=== PATIENT | female | born 1955 | race Caucasian/White ===

== ENCOUNTER 2016-12-20 21:51 | Emergency (ER) | payer OTHER ==
[~2016-12-20] VITALS: Ht 167.6 cm; Wt 80.2 kg
[~2016-12-20 21:51] MED LIST: ASPIR-LOW81 MG PO; CIPRO500 MG PO; FLAGYL500 MG PO; HYDRALAZINE HCL10 MG PO; LEVOTHYROXINE100 MCG PO; LISINOPRIL40 MG PO; MICROZIDE12.5 M1 PO; NIFEDIPINE ER30 MG PO; NIFEDIPINE ER60 MG PO
[2016-12-20 22:34] LABS: HEMATOCRIT 40.2 % (36.0-46.0); MCH 29.8 PG (29.0-34.0); MCHC 34.1 G/DL (30.0-36.0); MCV 87.4 FL (83-99); MEAN PLAT.VOLUME 10.4 uM^3 (9.5-12.4); PLATELET COUNT 230 K/uL (156-360); RBC DIS.WIDTH-SD 40.5 % (39-53)
[2016-12-20 22:51] LABS: D-DIMER ELISA 0.19 mg/L FEU (< 0.57)
[2016-12-20 22:52] LABS: CHLORIDE 105 mEq/L (99-109); POTASSIUM 4.1 mEq/L (3.7-5.4); SODIUM 141 mEq/L (136-147)
[2016-12-20 22:54] LABS: GLUCOSE 185 mg/dL (70-99)
[2016-12-20 22:55] LABS: ANION GAP 13 MEQ/L (2-14); TROP-I INTERPRETATION NEGATIVE; TROPONIN-I < 0.01 ng/mL (0.0-0.30)
[2016-12-20 22:58] LABS: GFR ESTIMATE (CALCULATED) > 59 mL/min/
[2016-12-20 22:59] LABS: UREA NITROGEN (BUN) 21 mg/dL (9-23)
[2016-12-20] MEDS ORDERED: CLONIDINE HCL0.3 MG PO (23:13)
[2016-12-20] MEDS ORDERED: SPIRONOLACTONE25 MG PO (23:14)
[2016-12-20] MEDS ORDERED: SUCRALFATE1 GM PO (23:15)
[2016-12-20] MEDS ORDERED: LEVO-T112 MCG PO (23:16)
[2016-12-20] MEDS ORDERED: CARVEDILOL25 MG PO (23:18)
[2016-12-21 00:17] LABS: TROP-I INTERPRETATION NEGATIVE; TROPONIN-I < 0.01 ng/mL (0.0-0.30)
[2016-12-21 00:48] VITALS: BP 157/86
== END 2016-12-21 00:56 | disposition home or self-care (01) ==
LOC: EME 21:51
PROVIDERS: Emergency Medicine
DX: R07.9 Chest pain, unspecified (principal); I10 Essential (primary) hypertension; R73.9 Hyperglycemia, unspecified; R10.12 Left upper quadrant pain; R06.00 Dyspnea, unspecified; M54.9 Dorsalgia, unspecified; E03.9 Hypothyroidism, unspecified
CPT/HCPCS: 71020; 80048; 83880; 84484; 85027; 85379; 93005; 99281; 99285

== ENCOUNTER 2018-04-25 21:36 | Emergency (ER) | payer OTHER ==
[~2018-04-25] VITALS: Ht 165.1 cm; Wt 80.2 kg
[~2018-04-25 21:36] MED LIST changes: +CARVEDILOL25 MG PO; +CLONIDINE HCL0.3 MG PO; +LEVO-T112 MCG PO; +SPIRONOLACTONE25 MG PO; +SUCRALFATE1 GM PO
[2018-04-25 22:10] LABS: HEMATOCRIT 38.7 % (36.0-46.0); HEMOGLOBIN 13.2 G/DL (11.9-15.5); MCH 29.9 PG (29.0-34.0); MCHC 34.1 G/DL (30.0-36.0); MCV 87.8 FL (83-99); PLATELET COUNT 241 K/uL (156-360); RBC DIS.WIDTH-CV 13.2 % (11.8-14.6); RBC DIS.WIDTH-SD 42.6 % (39-53); RED BLOOD COUNT 4.41 M/uL (3.80-5.20); WHITE BLOOD COUNT 7.1 K/uL (4.1-10.2)
[2018-04-25 22:29] LABS: CHLORIDE 102 mEq/L (99-109); POTASSIUM 4.1 mEq/L (3.7-5.4); SODIUM 142 mEq/L (136-147)
[2018-04-25 22:31] LABS: GLUCOSE 165 mg/dL (70-99)
[2018-04-25 22:32] LABS: TROP-I INTERPRETATION NEGATIVE; TROPONIN-I < 0.01 ng/mL (0.0-0.30)
[2018-04-25 22:32] LABS: CARBON DIOXIDE (BICARBONATE) 32.5 MEQ/L (20-31)
[2018-04-25 22:35] LABS: CREATININE 0.9 mg/dL (0.6-1.3); GFR ESTIMATE (CALCULATED) > 59 mL/min/
[2018-04-25 22:36] LABS: UREA NITROGEN (BUN) 21 mg/dL (9-23)
[2018-04-25 23:57] VITALS: BP 146/95
== END 2018-04-25 23:57 | disposition home or self-care (01) ==
LOC: EME 21:36
PROVIDERS: Emergency Medicine
DX: R06.02 Shortness of breath (principal); I10 Essential (primary) hypertension; E03.9 Hypothyroidism, unspecified
CPT/HCPCS: 71046; 80048; 82803; 84484; 85027; 93005; 99281; 99283